=== PATIENT | male | born 1940 | race Caucasian/White ===

== ENCOUNTER 2024-10-21 10:05 | Inpatient (IN) | payer MEDICARE, BC, SELFPAY ==
[2024-10-21] VITALS (25 sets, daily range): BP systolic 86–157; BP diastolic 58–98; BMI 31.1
[2024-10-21 07:22] LABS: % Basophils 0.4 % (0-2); % Immature Granulocytes 1.7 % (0-0.5); % Lymphocytes 14.7 % (20.5-51.1); % Monocytes 9.3 % (1.7-9.3); % Neutrophils 71.9 % (42.2-75.2); Absolute Eosinophils 0.2 10^3/uL (0-0.7); Absolute Immature Granulocytes 0.1 10^3/uL (0-0.05); Absolute Lymphocytes 1.2 10^3/uL (1.2-3.4); Absolute Monocytes 0.8 10^3/uL (0.1-0.6); Absolute Neutrophils 6.1 10^3/uL (1.4-6.5); Hematocrit 38.6 % (39.0-52.0); Hemoglobin 13.3 g/dL (13.0-18.0); Mean Corp Hgb Conc. 34.5 g/dL (33.0-37.0); Mean Corpuscular Hgb 30.7 pg (27.0-31.0); Mean Corpuscular Volume 89.1 fL (80.0-94.0); Mean Platelet Volume 9.9 fL (7.4-10.4); Nucleated Red Blood Cells % 0 % (-); Platelet Count 185 10^3/uL (130-400); Red Blood Cell Count 4.33 10^6/uL (4.70-6.10); Red Cell Dist. Width 13.1 % (11.5-14.5); White Blood Cell Count 8.5 10^3/uL (4.8-10.8)
[2024-10-21 07:31] LABS: ALT (SGPT) 14 U/L (0-50); AST (SGOT) 20 U/L (17-59); Albumin 3.7 g/dl (3.5-5.0); Alkaline Phosphatase 140 U/L (38-126); Blood Urea Nitrogen 17 mg/dl (9-20); Calcium 8.7 mg/dl (8.4-10.2); Carbon Dioxide 28 mmol/L (22-30); Chloride 101 mmol/L (98-107); Estimated Creatinine Clearance 79 ml/min; Glucose 211 mg/dl (70-99); Potassium 3.8 mmol/L (3.5-5.1); Sodium 136 mmol/L (135-145); Total Bilirubin 1.3 mg/dl (0.2-1.3); eGFR > 60.00
--- NOTE | 2024-10-21 08:24 | ED.GENMED ---
History of Present Illness
General
Chief Complaint: Fall
Source: patient, spouse and family
Time Seen by Provider: 10/21/24 06:19
History of Present Illness
History of Present Illness:
84-year-old male who presents with left hip pain after a fall. The patient states that he slipped with his socks on and fell to his left hip. He denies head injury. No neck pain. No back pain. No abdominal pain. No chest pain. No shortness of
breath. Is on Eliquis with last dose taken last night. Only complains of left hip pain reports pain is moderately controlled at this time. The patient's daughter states that the patient lives in [place]. Here with family. The patient's spouse
states that he could not get up off the ground
Past History
Past History
ED Past Medical History: Arrthythmia (Atrial fibrillation), NIDDM and Other (UTI, VPI, hospital delirium)
ED Past Surgical History: Appendectomy
Phy Exam
Physical Exam
Physical Exam:
CONSTITUTIONAL Patient alert and oriented to person, place and time. Well-appearing. Vital signs reviewed.
HEAD atraumatic, normocephalic.
EYES eyelids normal to inspection, Extraocular muscles intact, Conjunctiva normal, Sclera normal.
NECK normal range of motion, Trachea midline, no jugular venous distention.
RESPIRATORY CHEST No respiratory distress noted, Chest expansion equal
ABDOMEN abdomen nontender, Bowel sounds normal. No distention.
BACK normal inspection, no obvious deformities
UPPER EXTREMITY range of motion normal, Motor strength normal, no cyanosis, no edema.
LOWER EXTREMITY no cyanosis, no edema. Left lower extremity held in external rotation. Unable to flex hip actively. Normal distal perfusion
NEURO Speech normal, No focal motor deficits, [place] coma scale 15, Memory normal, Cranial Nerves intact to screening exam.
SKIN skin warm, dry, and normal in color.
Course
Orders/Labs/Results
Orders:
Orders
10/21/24 06:36
CMP [Comprehensive Metabolic Panel] Urgent
Complete Blood Count/With Diff Urgent
10/21/24 06:41
Hip, Left 2-3 Views [CR Hip - LT w/wo Pel 2-3 Vw*] Urgent
Comment: + shortening and ext rotation
Reason For Exam: fall onto hip
Include a pelvis x-ray?: Yes
10/21/24 08:39
CT Lower Ext W/o Iv Cont Lt Urgent
Comment:
Reason For Exam: fall, requested by ortho
10/21/24 09:50
Admit/Transfer Patient As Directed
Co-Sign Provider:
Level of Care: Inpatient admission
Assign to:: Telemetry
Physician / Group: Maximiliano
Diagnosis: Left hip fracture
Reason for Telemetry: Arrhythmia
Date to Stop Telemetry: 10/24/24
Time to Stop Telemetry: 11:00
Reason for Hospitalization: Orthopedic surgery
Expected length of stay greater than two midnights?: Yes
ELOS- Estimated Length of Stay in days: 2
I certify the patient meets the requirements for IP care: Yes
EKG [Electrocardiogram (*1)] Routine
Reason for Study: PreOp
PRN Pain Medication Management As Directed
May give lesser potent ordered pain med per pt: Yes
preference::
Protocol:: Medication orders for pain may be administered in a
manner that supports deferring to patient preference
when the pt is:
- Requesting an ordered lesser potent pain medication.
Least to most potent pain medications are defined
as: acetaminophen < NSAID < tramadol < opioids
(morphine, oxycodone, hydromorphone).
- Requesting a lesser dose of the same medication IF
ORDERED.
- Requesting a less intrusive route of administration
if both routes are prescribed by the provider (PO <
IV).
10/21/24 09:57
Code Status As Directed
Resuscitation Status: Full Code
10/21/24 Lunch
NPO
Allow oral meds: Yes
Allow clear liquids: Sips of Clears
NPO
Allow oral meds: Yes
Allow clear liquids: Sips of Clears
10/21/24 10:02
PRN Pain Medication Management As Directed
May give lesser potent ordered pain med per pt: Yes
preference::
Protocol:: Medication orders for pain may be administered in a
manner that supports deferring to patient preference
when the pt is:
- Requesting an ordered lesser potent pain medication.
Least to most potent pain medications are defined
as: acetaminophen < NSAID < tramadol < opioids
(morphine, oxycodone, hydromorphone).
- Requesting a lesser dose of the same medication IF
ORDERED.
- Requesting a less intrusive route of administration
if both routes are prescribed by the provider (PO <
IV).
10/21/24 10:03
Metoprolol Xl [Toprol Xl] 25 mg PO NOW STA
10/21/24 11:19
ORTHOPEDIC CONSULT Routine
Consulting Provider: Addy Hair
Was physician already notified: Yes
10/21/24 12:46
Acetaminophen [Tylenol] 650 mg PO Q6HPRN PRN
Dextrose 50%-Water [Dextrose 50% Syringe] 12.5 grams IV [id number] PRN
Glucagon [GlucaGen] 1 mg IM PRN PRN
Insulin Aspart Corrective Low [Novolog Flexpen-Low Resistance] See Protocol SC AC
LevoFLOXacin [Levaquin] 750 mg PO DAILY
10/21/24 12:46
Activity As Directed
Activity Level: With Assistance
Bedside Glucose Monitoring As Directed
Frequency: AC&HS
Additional Instructions:: Change to q6h if pt on TPN, tube feeding or not eating
Sequential Compression Device [Pneumatic Compression Sleeves] As Directed
Type: Knee high
DX Deep Vein Thrombosis Video Routine
10/22/24 06:00
Glycohemoglobin (HgbA1c) IN AM
10/22/24 08:00
Amlodipine [Norvasc] 5 mg PO DAILY
Ascorbic Acid [Vitamin C] 500 mg PO DAILY
Metoprolol Xl [Toprol Xl] 25 mg PO DAILY
Montelukast Sodium [Singulair] 10 mg PO DAILY
Rosuvastatin Calcium [Crestor] 5 mg PO DAILY
cyanocobalamin (vitamin B-12) 500 mcg PO DAILY
fexofenadine 180 mg PO DAILY
10/24/24 11:00
DC Protocol for Telemetry ONCE
Abnormal Lab Results
10/21/24
06:36
RBC 4.33 L 10^6/uL
(4.70-6.10)
Hct 38.6 L %
(39.0-52.0)
Abs Immat Gran (auto) 0.1 H 10^3/uL
(0-0.05)
Absolute Monos (auto) 0.8 H 10^3/uL
(0.1-0.6)
Immature Gran % 1.7 H %
(0-0.5)
Lymphocytes % 14.7 L %
(20.5-51.1)
Glucose 211 H mg/dl
(70-99)
Alkaline Phosphatase 140 H U/L
(38-126)
Total Protein 6.0 L g/dl
(6.3-8.2)
10/21/24 06:36
10/21/24 06:36
Vital Signs
Initial and Last Documented VS:
Initial Vital Signs
BP
157/79
10/21/24 06:15
Last Documented Vital Signs
Temp Pulse Resp BP Pulse Ox
98.0 F 107 18 135/91 96
10/21/24 06:19 10/21/24 13:15 10/21/24 13:15 10/21/24 13:00 10/21/24 13:15
MDM/Problems Addressed
MDM/Problems Addressed:
Left intertrochanteric fracture, chronic anticoagulation, uncontrolled hypertension
*Radiology
Radiology exam reviewed: preliminary read by ED provider (Left hip fracture)
*Pulse Oximetry
Patient hypoxic: no
*Critical Care Note
Total Time (30-74mins, 75-104mins- exclusive of procedures): Not Applicable
Data Reviewed
Source: patient and family
Further Testing Considered But Not Given:
Consider head CT but no outward signs of trauma. Patient specifically denies head injury. Certainly no neurologic findings
Patient Management
Discussion with other providers: Hospitalist and Electric Cutter Operator (Case discussed with orthopedics)
Escalation/DeEscalation of care consider admission/obs:
84-year-old male who presents after a fall. Found to have left hip fracture. Normal perfusion. Case discussed with orthopedics. Discussed with hospitalist.
ED Attending Note
-
Portions of this chart may have been created with voice recognition software.� Occasional wrong word or��sound alike� substitutions may have occurred due to the inherent limitations of voice recognition software.
Discharge Plan
Departure
Patient Disposition: Admit
Date of Disposition: 10/21/24
Time of Disposition: 08:24
Admit to: Med/Surg
Presentation/result/management discussed w/ accepting MD/DO: Hospitalist
Discharge Problem:
Closed hip fracture
Interventions
Interventions:
*Risk Screen - Suicide Last Done: 10/21/24 06:19
*General Assessment Last Done: 10/21/24 06:19
*Neglect/Abuse Screening Last Done: 10/21/24 06:19
ED- Fall Risk Assessment Last Done: 10/21/24 06:19
*ED COVID-19 Vaccine History Last Done: 10/21/24 06:19
ED-Musculoskeletal Assessment Last Done: 10/21/24 07:14
ED- Neurological Assessment Last Done: 10/21/24 07:14
ED-Skin Assessment Last Done: 10/21/24 06:38
--- NOTE | 2024-10-21 09:27 | PHANOTE ---
Addendum entered and electronically signed by Afsaneh Arroyo [facility] 10/21/24 15:07:
Pill Box
AM: apixaban 5 mg, furosemide 20 mg, HCTZ 12.5 mg, 2 unmark tablets (probably vitamins)
PM: apixaban 5 mg, rosuvastatin 5 mg, amlodipine 5 mg
omeprazole 20 mg in separate slot- patient states takes everyday
Original Note:
Home Med List
Medications confirmed with pharmacy fill data, home med list and patient/family input. Patient unable to confirm many of the medication names. Family to bring in pill organizer to confirm medications.
--- NOTE | 2024-10-21 09:59 | HPS.HSE ---
Family Physician
-
Family Physician: NOT KNOW UNKNOWN - PT DOES
Chief Complaint
-
Left hip pain, fall
History of Present Illness
84-year-old male who fell and sustained a left hip fracture early this morning. No loss of consciousness. Denies fracture in the past. Believes he slipped due to slippery socks on laminate flory.
Medical History
Past Medical History
Past Medical History: Reports Other
Additional Past Medical History:
Prostate cancer
Essential hypertension
DM2
Hyperlipidemia
Past Surgical History: Reports Urological
Social History
Tobacco: Former Smoker
Alcohol: Occasional
Drug: None
Personal:
Living: With Family
Family History
Family History: Not pertinent
Allergies / Home Medications
Allergies reflects when Allergies were last updated in [employer].
Home Medications with original date entered in [employer]
Allergy/Medication List:
Allergies
Allergy/AdvReac Type Severity Reaction Status Date / Time
aspirin Allergy Rash Verified 10/21/24 06:17
Home Medications
alfuzosin 10 mg tablet,extended release 24 hr 10 mg PO DAILY 10/21/24
amlodipine 5 mg tablet 5 mg PO DAILY Blood Pressure 10/21/24
apixaban 5 mg tablet (Eliquis) 5 mg PO BID 10/21/24
ascorbic acid (vitamin C) 500 mg tablet (Vitamin C) 500 mg PO DAILY 10/21/24
cyanocobalamin (vitamin B-12) 500 mcg tablet 500 mcg PO DAILY 10/21/24
fexofenadine 180 mg tablet 180 mg PO DAILY 10/21/24
fluticasone propionate 50 mcg/actuation nasal spray,suspension 1 spray intranasal DAILY 10/21/24
furosemide 20 mg tablet 20 mg PO DAILY 10/21/24
hydrochlorothiazide 12.5 mg tablet 12.5 mg PO DAILY 10/21/24
levofloxacin 750 mg tablet 750 mg PO DAILY uti 10/21/24
metformin 500 mg tablet 500 mg PO DAILY 10/21/24
metoprolol succinate 25 mg tablet,extended release 24 hr 25 mg PO DAILY 10/21/24
montelukast 10 mg tablet 10 mg PO DAILY 10/21/24
multivitamin 1 tab PO DAILY 10/21/24
omeprazole 20 mg capsule,delayed release 20 mg PO DAILY 10/21/24
rosuvastatin 5 mg tablet 5 mg PO DAILY 10/21/24
Review of Systems
-
History Source: Patient
A 12 point ROS was completed and negative except as noted: Yes
Physical Exam
Vital Signs
Vital Signs
Temp Pulse Resp BP Pulse Ox
98.0 F 71 15 123/86 94
10/21/24 06:19 10/21/24 09:00 10/21/24 09:00 10/21/24 09:00 10/21/24 09:00
Physical Exam
General: Well Developed, Well Nourished, No Apparent Distress and Comfortable
HEENT: NormoCephalic, Anicteric and Moist mucous membranes
Respiratory: Clear
Cardiac: S1/S2 and Regular Rhythm
GI: Soft, Non Tender and Non Distended
Genito-urinary: Deferred by me
Musculoskeletal: No Clubbing, No Cyanosis, No Edema and Other (Left lower extremity shortened and externally rotated)
Skin: Warm and Dry
Neuro: AO x 3
Hematologic/Lymphatic: No Lymphadenopathy
Psych: Calm
Laboratory Results
-
10/21/24 06:36
10/21/24 06:36
Laboratory Results
Total Bilirubin 1.3 mg/dl (0.2-1.3) 10/21/24 06:36
AST 20 U/L (17-59) 10/21/24 06:36
ALT 14 U/L (0-50) 10/21/24 06:36
Alkaline Phosphatase 140 U/L (38-126) H 10/21/24 06:36
Impression/Plan
-
Acute traumatic left intertrochanteric hip fracture -due to fall, underlying osteoporosis. Admit to telemetry. N.p.o., orthopedics consulted. Plan for surgery today. Appears to be at acceptable risk for surgery. Hold Eliquis this morning and
resume when okay with orthopedics. Discussed with Dr. Hair.
Atrial fibrillation -with rapid ventricular response. Unknown type of atrial fibrillation. Give a dose of Toprol-XL 25 mg now, discussed with nursing. Preoperative EKG shows atrial fibrillation with a heart rate of 107 bpm.
DM2 with hyperglycemia -check hemoglobin A1c. Use low resistance NovoLog scale. Hold metformin.
Essential hypertension -stable. Resume home meds.
Hyperlipidemia -rosuvastatin.
History of prostate cancer -with radiation colitis, history of GI bleed requiring colonoscopic cauterization.
Obesity due to excess calories
Full code
Family updated at the bedside.
[2024-10-21] MEDS: TOPROL XL 25 MG PO ×2 (10:14→14:46)
--- NOTE | 2024-10-21 11:49 | CON.ORTHO ---
Consultation
-
Date/Time Consultation Requested: 10/21/2024 1119
Date/Time Consultation Performed: 10/21/2024 1130
Requesting Provider: Dr. Jhony Viera
Performing Provider: CHANEL Jha, Dr. Addy Everett
Reason for Consultation: Left hip fracture
Consultation - Orthopedics
History
Pleasant 84-year-old male presenting to [facility] emergency room after he was visiting his daughter when he slipped on her floor at her house with direct fall onto his lateral hip. Denies any prodromal pain. He was unable to bear weight and was
brought via [facility] where radiographs showed a displaced intertrochanteric femur fracture. He denies any other injury sustained. He reports he is a community ambulator at baseline without assist devices.
Allergies / Home Medications
Past Medical History: Reports Other
Additional Past Medical History:
Prostate cancer
Essential hypertension
DM2
Hyperlipidemia
Past Surgical History: Reports Urological
Social History
Tobacco: Former Smoker
Alcohol: Occasional
Drug: None
Personal:
Living: With Family
Family History
Family History: Not pertinent
Allergy/AdvReac Type Severity Reaction Status Date / Time
aspirin Allergy Rash Verified 10/21/24 06:17
�Medication �Instructions �Recorded
alfuzosin 10 mg tablet,extended 10 mg PO DAILY 10/21/24
release 24 hr
amlodipine 5 mg tablet 5 mg PO DAILY Blood Pressure 10/21/24
apixaban 5 mg tablet (Eliquis) 5 mg PO BID 10/21/24
ascorbic acid (vitamin C) 500 mg 500 mg PO DAILY 10/21/24
tablet (Vitamin C)
cyanocobalamin (vitamin B-12) 500 500 mcg PO DAILY 10/21/24
mcg tablet
fexofenadine 180 mg tablet 180 mg PO DAILY 10/21/24
fluticasone propionate 50 1 spray intranasal DAILY 10/21/24
mcg/actuation nasal
spray,suspension
furosemide 20 mg tablet 20 mg PO DAILY 10/21/24
hydrochlorothiazide 12.5 mg tablet 12.5 mg PO DAILY 10/21/24
levofloxacin 750 mg tablet 750 mg PO DAILY uti 10/21/24
metformin 500 mg tablet 500 mg PO DAILY 10/21/24
metoprolol succinate 25 mg 25 mg PO DAILY 10/21/24
tablet,extended release 24 hr
montelukast 10 mg tablet 10 mg PO DAILY 10/21/24
multivitamin 1 tab PO DAILY 10/21/24
omeprazole 20 mg capsule,delayed 20 mg PO DAILY 10/21/24
release
rosuvastatin 5 mg tablet 5 mg PO DAILY 10/21/24
Vital Signs / Lab Results
Temp Pulse Resp BP Pulse Ox
98.0 F 112 18 140/90 95
10/21/24 06:19 10/21/24 11:15 10/21/24 11:15 10/21/24 11:00 10/21/24 11:15
10/21/24 06:36
10/21/24 06:36
Physical examination: Focused examination of the left lower extremity shows skin is intact. His left leg is shortened and externally rotated. He reports partial distal sensation intact. He has mild to moderate chronic edema. There is an old
abrasion and superficial swelling over the left anterior knee but no pain with gentle range of motion
Imaging: Left hip radiographs and CT scan taken show a displaced intertrochanteric femur fracture
Assessment / Plan
84-year-old male community ambulator left displaced intertrochanteric femur fracture DOI 21 October 2024 with significant past medical history of type 2 diabetes with unknown hemoglobin A1c and on Eliquis 5 mg p.o. twice daily. They also report a
significant history of postoperative delirium
Discussed with the patient as well as relative family members the significance of hip fractures there is an increased morbidity and mortality associated with these and they are significant injuries; reviewed that a portion of patient's return
towards ambulatory baseline status, another subset of patients are decreased when activity level, and other subset of patients pass away relative to comorbid conditions and decreased ambulatory status. Discussed it is recommended for majority of
patients to undergo operative intervention for optimal outcomes so that they may have an increased ambulatory status.
It was further discussed with the patient that the injury sustained is considered a fragility fracture which occurs in the setting of osteoporosis. Discussed with the patient the significance of this as there is an increased risk of further
fragility fractures in the future. Recommend when discharged and in the nearby future for a follow-up with her primary care provider and discussion of management of osteoporosis and mitigating fall risk is much as possible in the future.
Images were shown and discussed with the patient regarding their injury. The injury and respective operative and nonoperative interventions reviewed with the patient and respective family members to include the risks and benefits rehabilitation and
prognosis for each. The treatment and operative technique, postoperative follow-up, postoperative rehabilitation and surgical prognosis was reviewed in detail. After thorough discussion of potential treatment options the patient and respective
family members wish to proceed with operative intervention. Consent signed and placed in OR front end assistant for left hip reduction and cephalomedullary nail fixation with Dr. Hair.
Discussed relative risk of postop delirium with family as well as anesthesia with consideration of either deferring surgery for 72 hours for Eliquis washout for sedation and spinal nerve block versus other general anesthesia management given the
nature of hip fracture and relative urgency for operative invention. Anesthesia will further discussed with family and patient but tentatively plan for OR today
[2024-10-21] MEDS: LEVAQUIN 750 MG PO (13:20)
[2024-10-21 13:26] LABS: Glucose - Point of Care 189 mg/dl (70-99)
--- NOTE | 2024-10-21 13:30 | EDRN ---
Pt's POC glucose was 189. He remains NPO for the OR --tentatively scheduled at 3-4pm.Provider TT to ask if he wants me to administer the ordered insulin? I'm concerned that it won't be rechecked until hours later and he will be in the OR. Maybe this
dose should be held?. Dr Viera instructed me to HOLD this dose
--- NOTE | 2024-10-21 15:50 | W.PN.UPDATE ---
Update Note
Progress Note Update
Patient proceeding to the OR very shortly for a left hip ORIF (Ritting). Will defer to the primary team for restarting and dosing of Eliquis. Given surgery later here in the afternoon restarting Eliquis tomorrow morning it is reasonable. Will
follow.
[2024-10-21 18:16] LABS: Glucose - Point of Care 156 mg/dl (70-99)
--- NOTE | 2024-10-21 21:25 | PTCARENOTE ---
1930 Received patient from PACU (w/ family at bedside) s/p ORIF Left Hip Gamma (Dr. Hair). Telemetry orders> afib on monitor, afebrile, HR 88, RR 18, BP 122/82, pox 96% 3LNC, no c/o pain. X2 dressing with scant drainage to patient's left hip and
x1 dressing to left lateral knee. IVF infusing #20 RAC INT. Patient AAOx3, [place]- hearing aides left at home. Patient's daughter states that Mr. Abel stutters and can be forgetful at times. PMH and medications reviewed by this RN w/ patient and
daughter. Plan of care discussed. Call carmen within reach.
[2024-10-21] MEDS: NORMOSOL-R/PLASMALYTE-A 1000 IV (21:30)
[2024-10-21 21:36] LABS: Glucose - Point of Care 234 mg/dl (70-99)
[2024-10-21] MEDS: NOVOLOG FLEXPEN-LOW RESISTANCE SC (22:21)
[2024-10-21] MEDS: COLACE 100 MG PO (22:22)
[2024-10-21 22:48] LABS: Urine Albumin Trace (Neg - Trace); Urine Bilirubin Negative (Negative); Urine Character Slightly Cloudy (Clear); Urine Color Straw; Urine Glucose Trace (Negative); Urine Ketone Trace (Negative); Urine Leukocyte 2+ (Negative); Urine Nitrite Negative (Negative); Urine Occult Blood 3+ (Negative); Urine Specific Gravity 1.005 (<1.030); Urine Urobilinogen Negative (Neg - 1+)
--- NOTE | 2024-10-21 22:50 | PTCARENOTE ---
Patient incontinent of urine. Condom catheter placed when patient came to floor. Patient bladder scanned 486ml. House ADVISOR TO COMMAND IN COMBAT made aware and orders to straight cath per protocol placed, along with urinalysis reflex to culture. Patient voided 550ml via
condom cath and straight cath for 600ml cloudy urine. Patient states relief.
[2024-10-21 22:58] LABS: Urine Squamous Cell None seen /LPF (Few)
[2024-10-21 22:59] LABS: Urine Red Blood Cell 0-2 /HPF (0-2); Urine White Cell 70-80 /HPF (0-5)
[2024-10-21 23:00] LABS: Urine Bacteria Few (Negative)
[2024-10-22 00:04] VITALS: BMI 31.1
[2024-10-22] MEDS: ANCEF 5 IV ×2 (01:15→08:36)
[2024-10-22 03:35] VITALS: BP 138/82
--- NOTE | 2024-10-22 05:13 | PTCARENOTE ---
Patient restless, confused/hallucinating throughout the night. Spouse slept overnight d/t patient's known history of hospital delirium.
[2024-10-22] MEDS: NORMOSOL-R/PLASMALYTE-A 1000 IV (05:35)
[2024-10-22 07:30] VITALS: BP 136/80
[2024-10-22 08:18] LABS: Glucose - Point of Care 263 mg/dl (70-99)
--- NOTE | 2024-10-22 08:31 | W.PN.ORTHO ---
Today's Communication / Plan
-
Appreciate the primary team, continue Tx
Awaiting AM labs
Dispo per CM, ? SNF, appreciate CM
Continue WBAT LLE on walker/assistance
PT/OT
Eliquis for DVT ppx, dosing per primary team
Dressings to remain 7-10 days
Ice to hip prn. Avoid narcotics, please
Travon out in 2 weeks (SNF or office)
If travon out at [facility] outpatient Ortho follow-up 4 weeks
Assessment
.
Distal Motor Intact: Yes
Dressing:
Clean, dry and intact. Aquacels in place left thigh
Assessment:
POD#1 Left hip ORIF
Calf soft, nontender
Plan
.
Surgery / Date: Left hip Gamma Oct 18 (Ritting)
DVT Prophylaxis: Other (Eliquis per Dr. Viera)
Activity:
Out of bed. WBAT on walker/assistance
PT/OT
Discharge Plan: Other (per - [facility]?)
Subjective
.
.:
Patient resting comfortably in bed. Quite delirious. at bedside
Vital Signs and Labs
.
Vital Signs and Labs:
Lab Results
10/21/24 06:36
10/21/24 06:36
Temp Pulse Resp BP Pulse Ox
98 F 97 18 138/82 96
10/22/24 03:35 10/22/24 03:35 10/22/24 03:35 10/22/24 03:35 10/22/24 04:44
[2024-10-22] MEDS: VITAMIN C 500 MG PO (08:36)
[2024-10-22] MEDS: LEVAQUIN 750 MG PO (08:37)
[2024-10-22] MEDS: CLARITIN 10 MG PO (08:37)
[2024-10-22] MEDS: SINGULAIR 10 MG PO (08:37)
[2024-10-22] MEDS: VITAMIN B-12 500 MCG PO (08:37)
[2024-10-22] MEDS: TOPROL XL 50 MG PO (08:38)
[2024-10-22] MEDS: CRESTOR 5 MG PO (08:38)
[2024-10-22] MEDS: COLACE 100 MG PO ×2 (08:38→23:05)
[2024-10-22] MEDS: ELIQUIS 5 MG PO ×2 (08:38→23:05)
[2024-10-22] MEDS: TYLENOL 650 MG PO (08:41)
[2024-10-22] MEDS: NOVOLOG FLEXPEN-LOW RESISTANCE 3 UNITS SC (08:59)
[2024-10-22 09:06] LABS: Glycohemoglobin (HgbA1c) 8.2 % (4.0-5.6)
--- NOTE | 2024-10-22 10:04 | CM ---
Addendum entered by Francine Berry RN 10/22/24 13:48:
Referral sent in [facility].
Original Note:
Reviewed the chart notes and spoke with the patient and spouse at the bedside. Patient is s/p left hip ORIF. The patient resides in [place] with his spouse in a three story home with one step to enter. The patient reports no DME/VN/SNF in
the past. Patient uses [facility] when visiting family or the [facility] when home. PT/OT evaluations pending. CM continues to be available to patient/family and is monitoring medical plan for needs at
discharge.
Plan: Discharge plans will depend on patient's progress. Spouse would prefer patient is needing SNF be closer to [place]. Per spouse, transportation will be required.
[2024-10-22 11:30] VITALS: BP 111/77
[2024-10-22 13:05] VITALS: BP 108/68; BP 111/77
[2024-10-22] MEDS: NOVOLOG FLEXPEN-LOW RESISTANCE 2 UNITS SC (13:21)
[2024-10-22 13:22] LABS: Glucose - Point of Care 237 mg/dl (70-99)
--- NOTE | 2024-10-22 13:34 | W.PN.HOSP.TC ---
Today's Communication/Plan
-
DC telemetry
Discharge planning
Assessment / Plan
Assessment / Plan
Gen-awake, alert, confused
HEENT-NC, AT, anicteric, clear oral mm
Neck-supple
CV-reg, no M, +S1/S2
Lungs-clear B/L
Abd-soft, NT, ND
Ext-no edema
Musculoskeletal-no cyanosis, clubbing
Skin-warm and dry
Neuro-grossly non-focal
Psych-calm, cooperative
Hospital-acquired delirium -in postoperative state. Suspect underlying cognitive impairment contributing. Family at bedside and reiterated that he does get more confused the longer he stays in the hospital. Has a history of delirium. Does not
carry formal diagnosis of dementia.
Discussed with case management, goal should be to prior to his discharge soon as possible to rehab. Medically stable for discharge.
Discussed with nursing. DC telemetry.
Acute traumatic left intertrochanteric hip fracture -due to fall, underlying osteoporosis. Stable postop, left femoral intramedullary nail, 10/21.
Atrial fibrillation -with rapid ventricular response. Unknown type of atrial fibrillation. Toprol-XL dose increased to 50 mg daily for better rate control. Eliquis resumed.
DM2 with hyperglycemia -hemoglobin A1c 8.2%. Use low resistance NovoLog scale. Hold metformin. Add Lantus, NovoLog insulin.
Essential hypertension -stable. Hold amlodipine given increased dose of Toprol-XL.
Hyperlipidemia -rosuvastatin.
History of prostate cancer -with radiation colitis, history of GI bleed requiring colonoscopic cauterization.
Obesity due to excess calories
Full code
Dispo -stable for discharge to SNF. Updated family at the bedside. Case management aware.
Anticipated Discharge: Within 24 hours
Subjective/Interval History
-
Date of Service: October 22, 2024
Patient seen and examined. No complaints. Somewhat confused.
Objective Data
-
Vital Signs:
Vital Signs
Temp Pulse Resp BP Pulse Ox
97.6 F 100 18 136/80 94
10/22/24 07:30 10/22/24 07:30 10/22/24 07:30 10/22/24 07:30 10/22/24 07:30
I&O
10/21/24 10/22/24 10/23/24
06:59 06:59 06:59
Intake Total 1830 / 1830
Output Total 600 / 600
Balance 1230 / 1230
Review of Systems
-
Unable to obtain full review of systems at this time due to: Acuity
History Source: Patient and Family
All other systems: Reviewed and negative
[2024-10-22 14:30] VITALS: BP 103/70
[2024-10-22] MEDS: NORMOSOL-R/PLASMALYTE-A IV (16:10)
[2024-10-22 16:46] LABS: Glucose - Point of Care 196 mg/dl (70-99)
[2024-10-22] MEDS: NOVOLOG FLEXPEN-LOW RESISTANCE 1 UNITS SC (16:50)
[2024-10-22] MEDS: NOVOLOG FLEXPEN 5 UNITS SC (16:51)
--- NOTE | 2024-10-22 22:10 | RESPNOTE ---
family declined our cpap use since pt is already asleep
[2024-10-22 23:00] VITALS: BP 129/85
[2024-10-22] MEDS: LANTUS 0.1 UNITS SC (23:05)
[2024-10-23 07:15] VITALS: BP 136/84
[2024-10-23 08:25] LABS: Glucose - Point of Care 162 mg/dl (70-99)
--- NOTE | 2024-10-23 08:31 | W.PN.ORTHO ---
Today's Communication / Plan
-
Appreciate the primary team, continue Tx
Dispo per CM, ? SNF, appreciate CM
Continue WBAT LLE on walker/assistance
PT/OT
Eliquis for DVT ppx, dosing per primary team
Dressings to remain 7-10 days
Ice to hip prn. Avoid narcotics, please
[place] out in 2 weeks (SNF or office)
If travon out at SNF outpatient Ortho follow-up 4 weeks
Assessment
.
Distal Motor Intact: Yes
Dressing:
Clean, dry and intact. Aquacel in place left hip
Assessment:
POD#2 Left hip Gamma
Calf soft, nontender
Plan
.
Surgery / Date: Left hip Gamma Oct 18 ([facility])
DVT Prophylaxis: Other (Eliquis per primary)
Activity:
Out of bed. WBAT on walker/assistance
PT/OT
Discharge Plan: Other (per CM- family leaning toward rehab)
Subjective
.
.:
Patient resting comfortably. Son and bedside. Patient still a bit delirious
Vital Signs and Labs
.
Vital Signs and Labs:
Lab Results
10/21/24 06:36
10/21/24 06:36
Temp Pulse Resp BP Pulse Ox
98.6 F 105 18 136/84 91
10/23/24 07:15 10/23/24 07:15 10/23/24 07:15 10/23/24 07:15 10/23/24 07:15
[2024-10-23 10:04] VITALS: BP 133/69; BP 91/55; PULSE 88; O2SAT 88
[2024-10-23] MEDS: NOVOLOG FLEXPEN 5 UNITS SC ×3 (10:27→18:34)
[2024-10-23] MEDS: VITAMIN B-12 500 MCG PO (10:28)
[2024-10-23] MEDS: CRESTOR 5 MG PO (10:28)
[2024-10-23] MEDS: VITAMIN C 500 MG PO (10:28)
[2024-10-23] MEDS: NOVOLOG FLEXPEN-LOW RESISTANCE 1 UNITS SC ×2 (10:28→18:34)
[2024-10-23] MEDS: SINGULAIR 10 MG PO (10:28)
[2024-10-23] MEDS: COLACE 100 MG PO ×2 (10:29→19:40)
[2024-10-23] MEDS: ELIQUIS 5 MG PO ×2 (10:29→19:40)
[2024-10-23] MEDS: TOPROL XL 50 MG PO (10:29)
[2024-10-23] MEDS: CLARITIN 10 MG PO (10:30)
[2024-10-23 12:30] LABS: Glucose - Point of Care 146 mg/dl (70-99)
--- NOTE | 2024-10-23 12:46 | W.PN.HOSP.TC ---
Today's Communication/Plan
-
Discharge planning
Assessment / Plan
Assessment / Plan
Gen-awake, alert, confused
HEENT-NC, AT, anicteric, clear oral mm
Neck-supple
CV-reg, no M, +S1/S2
Lungs-clear B/L
Abd-soft, NT, ND
Ext-no edema
Musculoskeletal-no cyanosis, clubbing
Skin-warm and dry
Neuro-grossly non-focal
Psych-calm, cooperative
Hospital-acquired delirium -in postoperative state. Suspect underlying cognitive impairment contributing. Family at bedside and reiterated that he does get more confused the longer he stays in the hospital. Has a history of hospital-acquired
delirium. Does not carry formal diagnosis of dementia.
Discussed with case management, goal should be to prior to his discharge soon as possible to rehab. Medically stable for discharge.
Discussed with nursing. DC telemetry.
Will check with psychiatry regarding using Seroquel for the delirium. Spoke with and daughter at the bedside, has been staying in the room with him every night and she believes that he has not slept at all in the past few nights. This is
likely contributing to the delirium.
Acute traumatic left intertrochanteric hip fracture -due to fall, underlying osteoporosis. Stable postop, left femoral intramedullary nail, 10/21.
Atrial fibrillation -with rapid ventricular response. Unknown type of atrial fibrillation. Toprol-XL dose increased to 50 mg daily for better rate control. Continue Eliquis.
DM2 with hyperglycemia -hemoglobin A1c 8.2%. Use low resistance NovoLog scale. Hold metformin. Continue Lantus 10 units at bedtime, NovoLog 5 units AC.
Essential hypertension -stable. Hold amlodipine given increased dose of Toprol-XL.
Hyperlipidemia -rosuvastatin.
History of prostate cancer -with radiation colitis, history of GI bleed requiring colonoscopic cauterization.
Obesity due to excess calories
Full code
Dispo -stable for discharge to SNF. Updated family at the bedside. Case management aware.
Anticipated Discharge: Within 24 hours
Subjective/Interval History
-
Date of Service: October 23, 2024
Patient seen and examined. Remains confused. Family at the bedside. Not oriented. Denies pain.
Objective Data
-
Vital Signs:
Vital Signs
Temp Pulse Resp BP Pulse Ox
98.6 F 105 18 136/84 91
10/23/24 07:15 10/23/24 07:15 10/23/24 07:15 10/23/24 07:15 10/23/24 07:15
I&O
10/22/24 10/23/24 10/24/24
06:59 06:59 06:59
Intake Total 1830 / 1830 1280 / 1280
Output Total 600 / 600
Balance 1230 / 1230 1280 / 1280
Review of Systems
-
Unable to obtain full review of systems at this time due to: Acuity
History Source: Patient and Family
All other systems: Reviewed and negative
[2024-10-23] MEDS: NOVOLOG FLEXPEN-LOW RESISTANCE SC (14:37)
[2024-10-23 15:14] VITALS: BP 113/71
[2024-10-23 18:14] LABS: Glucose - Point of Care 152 mg/dl (70-99)
[2024-10-23] MEDS: MAALOX 30 ML PO (21:04)
--- NOTE | 2024-10-23 21:19 | RESPNOTE ---
patient's family stated that the patient has been experiencing more belching then normal and was concerned that the cpap would make things worse
[2024-10-23 21:43] LABS: Glucose - Point of Care 246 mg/dl (70-99)
[2024-10-23] MEDS: SEROQUEL 25 MG PO (22:56)
[2024-10-23] MEDS: LANTUS 0.1 UNITS SC (22:57)
[2024-10-23 23:15] VITALS: BP 105/71
[2024-10-24 06:55] VITALS: BP 142/93
[2024-10-24 07:45] LABS: Glucose - Point of Care 184 mg/dl (70-99)
[2024-10-24] MEDS: MAALOX 30 ML PO (07:59)
[2024-10-24] MEDS: NOVOLOG FLEXPEN-LOW RESISTANCE 1 UNITS SC ×2 (08:00→18:13)
[2024-10-24] MEDS: TYLENOL 650 MG PO (08:01)
[2024-10-24] MEDS: NOVOLOG FLEXPEN 5 UNITS SC ×3 (08:01→18:12)
[2024-10-24] MEDS: CLARITIN 10 MG PO (08:02)
[2024-10-24] MEDS: ELIQUIS 5 MG PO ×2 (08:02→21:42)
[2024-10-24] MEDS: SINGULAIR 10 MG PO (08:02)
[2024-10-24] MEDS: CRESTOR 5 MG PO (08:02)
[2024-10-24] MEDS: COLACE PO ×2 (08:02→08:06)
[2024-10-24] MEDS: TOPROL XL 50 MG PO (08:02)
[2024-10-24] MEDS: VITAMIN C 500 MG PO (08:02)
[2024-10-24] MEDS: VITAMIN B-12 500 MCG PO (08:02)
--- NOTE | 2024-10-24 09:43 | PN.CDI ---
CDI
- -
CDI:
Physician Documentation Request
Admit Date: 10/21/24 10:05
Dear Doctor Reza,
Please review the following and provide your response in the progress notes.
Clinical Indicators:
10/22/24 05:13 - Patient Care Note
#Patient restless, confused/hallucinating throughout the night.
#...Spouse slept overnight d/t patient's known history of hospital delirium.
PN, 10/23
#Hospital-acquired delirium -in postoperative state.
#...Suspect underlying cognitive impairment contributing.
#...Family at bedside and reiterated that he does get
#...more confused the longer he stays in the hospital.
#...Has a history of hospital-acquired delirium.
#...Does not carry formal diagnosis of dementia.
#...check with psychiatry regarding using Seroquel for the delirium.
#Spoke with and daughter at the bedside,
#... has been staying in the room with him every night and
#...she believes that he has not slept at all in the past few nights.
#This is likely contributing to the delirium.
Based on the above, please clarify in the Progress Notes and Discharge Summary which, if any of the following, is the most likely etiology of the confusion/altered mental status.
Multifactorial, toxic metabolic encephalopathy, due to post op, (anesthesia), underlying cognitive impairment, hospital acquired delirium
Acute Delirium, Only- indicate known or suspected etiology such as postoperative, due to opioids or other drugs etc. Can also indicate unknown or mixed etiologies.
Other (please specify)
Use of terms such as suspected, likely, concern for, or probable (associated with a specific diagnosis that is being evaluated, monitored, or treated as if it exists) are acceptable and can be coded in the inpatient setting, when documented at the
time of discharge.
Thank you,
Radha Contreras RN BSN CCDS
CDI Specialist
please contact via tiger text
Please use your independent medical judgment in providing your response.
[2024-10-24 10:07] LABS: Blood Urea Nitrogen 25 mg/dl (9-20); Calcium 8.1 mg/dl (8.4-10.2); Carbon Dioxide 26 mmol/L (22-30); Chloride 100 mmol/L (98-107); Estimated Creatinine Clearance 101 ml/min; Glucose 237 mg/dl (70-99); Potassium 3.7 mmol/L (3.5-5.1); Sodium 133 mmol/L (135-145); eGFR > 60.00
[2024-10-24 10:15] LABS: % Basophils 0.2 % (0-2); % Eosinophils 1.9 % (0-6); % Immature Granulocytes 0.5 % (0-0.5); % Lymphocytes 16.4 % (20.5-51.1); % Monocytes 8.4 % (1.7-9.3); % Neutrophils 72.6 % (42.2-75.2); Absolute Eosinophils 0.2 10^3/uL (0-0.7); Absolute Immature Granulocytes 0.1 10^3/uL (0-0.05); Absolute Lymphocytes 1.6 10^3/uL (1.2-3.4); Absolute Monocytes 0.8 10^3/uL (0.1-0.6); Absolute Neutrophils 6.9 10^3/uL (1.4-6.5); Hematocrit 32.8 % (39.0-52.0); Hemoglobin 11.4 g/dL (13.0-18.0); Mean Corp Hgb Conc. 34.8 g/dL (33.0-37.0); Mean Corpuscular Hgb 31.6 pg (27.0-31.0); Mean Corpuscular Volume 90.9 fL (80.0-94.0); Mean Platelet Volume 10.2 fL (7.4-10.4); Nucleated Red Blood Cells % 0 % (-); Platelet Count 163 10^3/uL (130-400); Red Blood Cell Count 3.61 10^6/uL (4.70-6.10); Red Cell Dist. Width 13.4 % (11.5-14.5); White Blood Cell Count 9.5 10^3/uL (4.8-10.8)
[2024-10-24 10:51] VITALS: BP 127/78; BP 137/79; PULSE 90
[2024-10-24 10:57] VITALS: BP 127/78; BP 137/79; PULSE 90
[2024-10-24 11:10] LABS: Glucose - Point of Care 131 mg/dl (70-99)
--- NOTE | 2024-10-24 11:41 | CM ---
Addendum entered by Elizabeth Garcia 10/24/24 15:57:
Transport scheduled for 1000. Family and facility updated
Addendum entered by Elizabeth Garcia 10/24/24 12:48:
Received call from Haylee [phone] at [facility] - can accept
Checked with transport analyst - cost would be $1495 to pt
Family aware of cost and will cover cost (/son)
Spoke with Haylee - updated of plan for transfer tomorrow
Updated Dr Cobb
Will arrange transport in AM
Plan - transfer to [facility] in AM
R - [phone]
F - [phone]
Original Note:
Chart reviewed
Met with pt and family at bedside
Family requesting referral to [facility] - per pts , pt was there in the fall and good experience
Also requested local referrals be sent to [facility] and [facility] - family members live close to snf's
Referral sent in Care Port
Plan - TBD based on accepting facility
[2024-10-24] MEDS: NOVOLOG FLEXPEN-LOW RESISTANCE SC (11:42)
--- NOTE | 2024-10-24 11:52 | W.PN.HOSP.TC ---
Today's Communication/Plan
-
Monitor vitals
See plan
Continue with Seroquel
Pending SNF, pillowcase cutter aware
Assessment / Plan
Assessment / Plan
Gen-awake, alert, confused
HEENT-NC, AT, anicteric, clear oral mm
Neck-supple
CV-reg, no M, +S1/S2
Lungs-clear B/L
Abd-soft, NT, ND
Ext-no edema
Musculoskeletal-no cyanosis, clubbing
Skin-warm and dry
Neuro-grossly non-focal
Psych-calm, cooperative
Confusion likely multifactorial secondary to hospital-acquired delirium -in postoperative state and suspect underlying cognitive impairment contributing however hasnt been diagnosed Family at bedside and reiterated that he does get more confused
the longer he stays in the hospital. Has a history of hospital-acquired delirium. Does not carry formal diagnosis of dementia.
now appears to have resolved
Discussed with case management, goal should be to prior to his discharge soon as possible to rehab. Medically stable for discharge.
Discussed with nursing. DC telemetry.
Seroquel for the delirium. Patient responded well. Will keep Seroquel for now. has been staying in the room with him every night and she believes that he has not slept at all in the past few nights. This is likely contributing to the
delirium.
Hyponatremia
Monitor
Acute traumatic left intertrochanteric hip fracture -due to fall, underlying osteoporosis. Stable postop, left femoral intramedullary nail, 10/21.
Atrial fibrillation -with rapid ventricular response. Unknown type of atrial fibrillation. Toprol-XL dose increased to 50 mg daily for better rate control. Continue Eliquis.
DM2 with hyperglycemia -hemoglobin A1c 8.2%. Use low resistance NovoLog scale. Hold metformin. Continue Lantus 10 units at bedtime, NovoLog 5 units AC.
Essential hypertension -stable. Hold amlodipine given increased dose of Toprol-XL.
Hyperlipidemia -rosuvastatin.
History of prostate cancer -with radiation colitis, history of GI bleed requiring colonoscopic cauterization.
Obesity due to excess calories
Full code
Dispo -stable for discharge to SNF. Updated family at the bedside. Case management aware.
Anticipated Discharge: Today
Subjective/Interval History
-
Date of Service: October 24, 2024
denies pain
Objective Data
-
Labs:
Laboratory Results
10/24/24
09:02
WBC 9.5
Hgb 11.4 L
Hct 32.8 L
Plt Count 163
Sodium 133 L
Potassium 3.7
Chloride 100
Carbon Dioxide 26
BUN 25 H
Creatinine 0.7
Glucose 237 H
Calcium 8.1 L
Vital Signs:
Vital Signs
Temp Pulse Resp BP Pulse Ox
97.9 F 88 16 142/93 97
10/24/24 06:55 10/24/24 06:55 10/24/24 06:55 10/24/24 06:55 10/24/24 06:55
I&O
10/23/24 10/24/24 10/25/24
06:59 06:59 06:59
Intake Total 1280 / 1280 120 / 120
Balance 1280 / 1280 120 / 120
[2024-10-24] MEDS: PROTONIX 40 MG PO (12:51)
[2024-10-24 15:05] VITALS: BP 124/72
[2024-10-24 16:45] LABS: Glucose - Point of Care 152 mg/dl (70-99)
--- NOTE | 2024-10-24 21:11 | RESPNOTE ---
pt refuses our cpap machine once more, as he states, 'Tonight is my last night.'
[2024-10-24 21:42] LABS: Glucose - Point of Care 121 mg/dl (70-99)
[2024-10-24] MEDS: LANTUS 0.1 UNITS SC (21:42)
[2024-10-24] MEDS: COLACE 100 MG PO (21:42)
[2024-10-24] MEDS: SEROQUEL 25 MG PO (21:42)
[2024-10-24 23:00] VITALS: BP 139/81
[2024-10-25 07:00] VITALS: BP 124/80
[2024-10-25 07:07] LABS: % Basophils 0.3 % (0-2); % Eosinophils 3.1 % (0-6); % Monocytes 11.4 % (1.7-9.3); % Neutrophils 67.2 % (42.2-75.2); Absolute Eosinophils 0.3 10^3/uL (0-0.7); Absolute Immature Granulocytes 0.2 10^3/uL (0-0.05); Absolute Lymphocytes 1.4 10^3/uL (1.2-3.4); Absolute Neutrophils 6.1 10^3/uL (1.4-6.5); Mean Corp Hgb Conc. 35.3 g/dL (33.0-37.0); Mean Corpuscular Hgb 31.3 pg (27.0-31.0); Mean Corpuscular Volume 88.5 fL (80.0-94.0); Nucleated Red Blood Cells % 0 % (-); Platelet Count 174 10^3/uL (130-400); Red Blood Cell Count 3.84 10^6/uL (4.70-6.10); Red Cell Dist. Width 13.5 % (11.5-14.5)
[2024-10-25 07:35] LABS: Blood Urea Nitrogen 21 mg/dl (9-20); Calcium 8.1 mg/dl (8.4-10.2); Carbon Dioxide 22 mmol/L (22-30); Chloride 103 mmol/L (98-107); Estimated Creatinine Clearance 118 ml/min; Glucose 141 mg/dl (70-99); Sodium 135 mmol/L (135-145); eGFR > 60.00
[2024-10-25 08:26] LABS: Glucose - Point of Care 150 mg/dl (70-99)
[2024-10-25] MEDS: NOVOLOG FLEXPEN 5 UNITS SC (08:39)
[2024-10-25] MEDS: NOVOLOG FLEXPEN-LOW RESISTANCE 1 UNITS SC (08:40)
[2024-10-25] MEDS: VITAMIN B-12 500 MCG PO (08:41)
[2024-10-25] MEDS: TOPROL XL 50 MG PO (08:41)
[2024-10-25] MEDS: SINGULAIR 10 MG PO (08:42)
[2024-10-25] MEDS: CRESTOR 5 MG PO (08:43)
[2024-10-25] MEDS: ELIQUIS 5 MG PO (08:43)
[2024-10-25] MEDS: CLARITIN 10 MG PO (08:44)
[2024-10-25] MEDS: VITAMIN C 500 MG PO (08:44)
[2024-10-25] MEDS: PROTONIX 40 MG PO (08:44)
[2024-10-25] MEDS: COLACE 100 MG PO (08:44)
--- NOTE | 2024-10-25 10:01 | CM ---
Pt for planned discharge today
Given IMM
Transport at 11AM
Haylee at [facility]
Plan - transfer to [facility]
r - [phone]
f - [phone]
--- NOTE | 2024-10-25 10:37 | W.PN.HOSP.TC ---
Today's Communication/Plan
-
monitor vitals
see plan
dc today
time of discharge 38 minutes
Assessment / Plan
Assessment / Plan
Gen-awake, alert, confused
HEENT-NC, AT, anicteric, clear oral mm
Neck-supple
CV-reg, no M, +S1/S2
Lungs-clear B/L
Abd-soft, NT, ND
Ext-no edema
Musculoskeletal-no cyanosis, clubbing
Skin-warm and dry
Neuro-grossly non-focal
Psych-calm, cooperative
Confusion likely multifactorial secondary to hospital-acquired delirium -in postoperative state and suspect underlying cognitive impairment contributing however hasnt been diagnosed Family at bedside and reiterated that he does get more confused
the longer he stays in the hospital. Has a history of hospital-acquired delirium. Does not carry formal diagnosis of dementia.
now appears to have resolved
Discussed with case management, goal should be to prior to his discharge soon as possible to rehab. Medically stable for discharge.
Discussed with nursing. DC telemetry.
Seroquel for the delirium. Patient responded well. Will keep Seroquel for now. has been staying in the room with him every night and she believes that he has not slept at all in the past few nights. This is likely contributing to the
delirium.
Hyponatremia
Monitor
mild intermittent diarrhea
likely has IBS; outpatient GI f/u
now improving
Acute traumatic left intertrochanteric hip fracture -due to fall, underlying osteoporosis. Stable postop, left femoral intramedullary nail, 10/21.
Atrial fibrillation -with rapid ventricular response. Unknown type of atrial fibrillation. Toprol-XL dose increased to 50 mg daily for better rate control. Continue Eliquis.
DM2 with hyperglycemia -hemoglobin A1c 8.2%. Use low resistance NovoLog scale. Hold metformin. Continue Lantus 10 units at bedtime, NovoLog 5 units AC.
Essential hypertension -stable. Hold amlodipine given increased dose of Toprol-XL.
Hyperlipidemia -rosuvastatin.
GERD; add famotidine; PPI
History of prostate cancer -with radiation colitis, history of GI bleed requiring colonoscopic cauterization.
Obesity due to excess calories
Full code
Dispo -stable for discharge to SNF. Updated family at the bedside. Case management aware.
Anticipated Discharge: Today
Subjective/Interval History
-
Date of Service: October 25, 2024
denies pain
Objective Data
-
Labs:
Laboratory Results
10/25/24
05:57
WBC 9.0
Hgb 12.0 L
Hct 34.0 L
Plt Count 174
Sodium 135
Potassium 4.0
Chloride 103
Carbon Dioxide 22
BUN 21 H
Creatinine 0.6 L
Glucose 141 H
Calcium 8.1 L
Vital Signs:
Vital Signs
Temp Pulse Resp BP Pulse Ox
97.8 F 98 17 124/80 94
10/25/24 07:00 10/25/24 07:00 10/25/24 07:00 10/25/24 07:00 10/25/24 07:00
I&O
10/24/24 10/25/24 10/26/24
06:59 06:59 06:59
Intake Total 120 / 120 600 / 600
Output Total 200 / 200
Balance 120 / 120 400 / 400
--- NOTE | 2024-10-25 10:39 | W.DCSUMMARY ---
Discharge Summary
Discharge Data
Date of Admission: 10/21/24
Date of Discharge: 10/25/24
-
Pending Results: No
Hospital Course
84-year-old male with past medical history of hyperlipidemia, essential hypertension, diabetes mellitus, atrial fibrillation, GERD, hyperlipidemia, history of prostate cancer, obesity came to the hospital after a fall with acute traumatic left
intertrochanteric hip fracture. Patient was seen by orthopedics and was taken for surgery. Postop patient developed confusion which was likely thought was multifactorial secondary to hospital-acquired delirium and suspected underlying cognitive
impairment contributing to his symptoms. Over time his mental status continue to improve and he was able to come back to his baseline mental status prior to discharge. He was also started on Seroquel which improved his symptoms. For his blood
pressure amlodipine and hydrochlorothiazide was held on discharge and he was instructed to restart when his blood pressure is greater than 140/90. He was also evaluated by physical therapy recommended SNF. Once his symptoms continue to improve, he
was then discharged to SNF with instructions to follow-up with all the physicians outpatient.
Discharge Plan
-
Patient Disposition: Senior Care/SNF
Discharge Diagnosis/Procedures: Acute traumatic left intertrochanteric hip fracture -due to fall, underlying osteoporosis
Hospital-acquired delirium
Suspect cognitive impairment
Diet: As tolerated and Diabetic, Carb Controlled
Activity: With assistance and As tolerated
Driving Restrictions: Not until seen by your Dr
Bathing Restrictions: None
Activity Restrictions/Additional Instructions:
Dressings to remain 7-10 days
Ice to hip prn. Avoid narcotics, please
[place] out in 2 weeks (SNF or orthopedics office)
Referrals:
Addy Hair MD [Active] - in one to two weeks
UNKNOWN - PT DOES,NOT KNOW [Family Provider] - in less than 1 week
Henry Coyle MD [Active] -
Prescriptions:
New
acetaminophen 325 mg Tablet
650 mg PO Q6HPRN PRN (Reason: mild pain/ fever>100.5F) Qty: 0 0RF
quetiapine 25 mg Tablet
25 mg PO HS Qty: 0 0RF
metoprolol succinate 50 mg Tablet Extended Release 24 Hr
50 mg PO DAILY Qty: 0 0RF
oxycodone 5 mg Tablet
5 mg PO Q4HPRN PRN (Reason: Moderate to severe pain) Qty: 18 0RF
famotidine [Pepcid] 20 mg tablet
20 mg PO DAILY Qty: 1 0RF
Continued
multivitamin Tablet
1 tab PO DAILY
metformin 500 mg Tablet
500 mg PO DAILY
ascorbic acid (vitamin C) [Vitamin C] 500 mg Tablet
500 mg PO DAILY
omeprazole 20 mg Capsule,Delayed Release(Dr/Ec)
20 mg PO DAILY
montelukast 10 mg Tablet
10 mg PO DAILY
fluticasone propionate 50 mcg/actuation [place],Suspension
1 spray INTRANASAL DAILY
rosuvastatin 5 mg Tablet
5 mg PO QPM
Eliquis 5 mg Tablet
5 mg PO BID
cyanocobalamin (vitamin B-12) 500 mcg tablet
500 mcg PO DAILY
fexofenadine 180 mg Tablet
180 mg PO DAILY
Held
amlodipine 5 mg Tablet
5 mg PO QPM
Hold Instructions: restart when BP>140/90
hydrochlorothiazide 12.5 mg Tablet
12.5 mg PO DAILY
Hold Instructions: restart when BP >140/90
Discontinued
metoprolol succinate 25 mg Tablet Extended Release 24 Hr
25 mg PO DAILY
furosemide 20 mg tablet
20 mg PO DAILY
Rx Instructions:
Pt and Pt's does not recall if Pt is still on Furosemide, or if it was discontinued.
levofloxacin 750 mg tablet
750 mg PO DAILY
Rx Instructions:
10/21/24: started 10/18/24 x 5 days
Discharge Orders:
Discharge Patient (As Directed); Ordered 10/25/24
Ordered By: Simón Cobb
Discharge Date and Time
Discharge Date/Time: 10/25/24 12:37
Print Language: PASHTO
[2024-10-25 11:15] VITALS: BP 140/80
== END 2024-10-25 12:37 | DRG 481 ==
LOC: 2 SOUTH 10:05
PROVIDERS: Nurse Practitioner Gerontology; ADMITTING PHYSICIAN Hospitalist; ATTENDING PHYSICIAN Internal Medicine; CONSULT PHYSICIAN Orthopaedic Surgery Hand Surgery; EMERGENCY PHYSICIAN Emergency Medicine
PROC: 0QH706Z Insertion of Intramedullary Internal Fixation Device into Left Upper Femur, Open Approach (ICD-10-PCS; 2024-10-21)
DX: M80.052A Age-related osteoporosis with current pathological fracture, left femur, initial encounter for fracture (principal); E87.1 Hypo-osmolality and hyponatremia; F05 Delirium due to known physiological condition; S72.142A Displaced intertrochanteric fracture of left femur, initial encounter for closed fracture; W01.0XXA Fall on same level from slipping, tripping and stumbling without subsequent striking against object, initial encounter; Z87.891 Personal history of nicotine dependence; I48.91 Unspecified atrial fibrillation; E11.65 Type 2 diabetes mellitus with hyperglycemia; I10 Essential (primary) hypertension; E78.5 Hyperlipidemia, unspecified; E66.09 Other obesity due to excess calories; Z68.31 Body mass index [BMI] 31.0-31.9, adult; K21.9 Gastro-esophageal reflux disease without esophagitis
CPT/HCPCS: 73502; 73700; 76000; 80048; 80053; 81003; 81015; 82962; 83036; 85025; 86850; 86900; 86901; 87086; 93005; 97116; 97163; 97167; 97530; 97535; 99285